=== PATIENT | male | born 1955 | race Native Hawaiian/Other Pacific Islander ===

== ENCOUNTER 2021-02-22 10:12 | Outpatient (CLI) | payer OTHER ==
[~2021-02-22 10:12] MED LIST: BUSP15TAB2 PO; BUSPIRONE5 MG PO; CALCIUM +D PO; CYAN10009 IM; DOCU100C10 PO; FLUOXETINE HYDR60 MG PO; FLUOXETINE20 MG PO; FOLI1TAB26 PO; HYDR25CA25 PO; MIRALAX3350 N1 PO; PRED FORTE1 % OPTH; PRO-STAT PO; TAMS0.4C PO; WELLBUTRIN150 MG PO; ZYPREXA ZYDI5 MG PO
== END 2021-02-22 20:53 | disposition home or self-care (01) ==
LOC: RAD 10:12
PROVIDERS: ATTEND Internal Medicine
DX: R13.19 Other dysphagia (principal)

== ENCOUNTER 2021-06-28 09:47 | Outpatient (CLI) | payer OTHER | END 2021-06-28 19:24 | disposition home or self-care (01) | LOC: RAD 09:47 | PROVIDERS: ATTEND Internal Medicine | DX: R13.10 Dysphagia, unspecified (principal) ==

== ENCOUNTER 2022-03-01 09:58 | Outpatient (CLI) | payer OTHER | END 2022-03-01 20:00 | disposition home or self-care (01) | LOC: RAD 09:58 | PROVIDERS: ATTEND Otolaryngology | DX: T17.8 Foreign body in other parts of respiratory tract (principal); Y92.9 Unspecified place or not applicable; R13.19 Other dysphagia ==